=== PATIENT | female | born 1985 | race Two or more races ===

== ENCOUNTER 2018-07-01 18:10 | Emergency (ER) | payer MEDICAID, SELFPAY ==
[~2018-07-01] VITALS: Ht 167.6 cm; Wt 68.2 kg
[2018-07-01 18:52] LABS: BASOPHILS # (AUTO) 0.05 x10^3/uL (0-0.1); BASOPHILS % (AUTO) 1 % (0-1); EOSINOPHILS # (AUTO) 0.16 x10^3/uL (0-0.4); EOSINOPHILS % (AUTO) 2 % (1-7); LYMPHOCYTES # (AUTO) 2.88 x10^3/uL (1-3.4); LYMPHOCYTES % (AUTO) 35 % (22-44); MD NO; MEAN CORPUSCULAR HEMOGLOBIN 32.4 pg (27.0-34.8); MEAN CORPUSCULAR HGB CONC 33.8 g/dL (32.4-35.8); MEAN PLATELET VOLUME 10.1 fL (7.4-10.4); MONOCYTES # (AUTO) 0.56 x10^3/uL (0.2-0.8); MONOCYTES % (AUTO) 7 % (2-9); NEUTROPHILS # (AUTO) 4.59 x10^3/uL (1.8-6.8); NEUTROPHILS % (AUTO) 56 % (42-75); PLATELET COUNT 219 x10^3/uL (130-400); RED BLOOD COUNT 3.94 x10^6/uL (3.82-5.3); RED CELL DISTRIBUTION WIDTH 13.7 % (9.6-15.2)
[2018-07-01] MEDS ORDERED: PHENAZOPYRIDINE 200 MG TABLET ONE (18:53)
[2018-07-01 19:00] LABS: ALBUMIN 3.8 g/dL (3.4-5.0); ANION GAP 8 mmol/L (5-15); CALCIUM 8.7 mg/dL (8.5-10.1); CHLORIDE 108 mmol/L (98-107)
[2018-07-01] MEDS ORDERED: PHENAZOPYRIDINE 200 MG TABLET PO ONE (19:00)
[2018-07-01 19:06] LABS: ALANINE AMINOTRANSFERASE 19 U/L (12-78); ALKALINE PHOSPHATASE 78 U/L (45-117); BILIRUBIN,TOTAL 0.3 mg/dL (0.2-1.0); CREATININE 0.67 mg/dL (0.55-1.02); TOTAL PROTEIN 7.7 g/dL (6.4-8.2)
[2018-07-01 19:11] LABS: MICROSCOPIC INDICATED
[2018-07-01 19:12] LABS: CULTURE INDICATED? YES
[2018-07-01] MEDS ORDERED: CEFTRIAXONE 1,000 MG IM ONE (20:00)
[2018-07-01] MEDS ORDERED: LIDOCAINE-MPF 1%, 5ML ONE (20:03)
[2018-07-01] MEDS ORDERED: CEFTRIAXONE 1,000 MG ONE (20:03)
[2018-07-01] MEDS ORDERED: DIPHENHYDRAMINE 25 MG CAPSULE ONE (20:25)
[2018-07-01] MEDS ORDERED: DIPHENHYDRAMINE 25 MG CAPSULE PO ONE (20:30)
[2018-07-01 20:58] VITALS: BP 105/61
== END 2018-07-01 20:15 | disposition home or self-care (01) ==
LOC: ED 20:09
DX: N30.00 Acute cystitis without hematuria (principal)
CPT/HCPCS: 36415; 80053; 81001; 83690; 85025; 87077; 87086; 87186; 96372; 99284; J0696; Q0163

== ENCOUNTER 2019-03-04 22:21 | Emergency (ER) | payer MEDICAID ==
[~2019-03-04] VITALS: Ht 167.6 cm; Wt 72.3 kg
[2019-03-04 22:28] VITALS: BP 103/71
--- NOTE | 2019-03-04 22:50 | NUR ---
PT REPORTS THAT SHE IS DRIVING HER AND HER DAUGHTER HOME THIS EVENING. ERP AWARE. MEDICATION ORDERS CHANGED.
[2019-03-04] MEDS ORDERED: PROCHLORPERAZINE 5 MG/ML, 2ML IVPush ONE (23:00)
[2019-03-04] MEDS ORDERED: ONDANSETRON ODT 4 MG PO ONE (23:00)
[2019-03-04] MEDS ORDERED: DIPHENHYDRAMINE 50 MG/ML, 1ML IVPush ONE (23:00)
[2019-03-04] MEDS ORDERED: KETOROLAC 30 MG/1 ML IM ONE (23:00)
[2019-03-04] MEDS ORDERED: KETOROLAC 30 MG/1 ML IVPush ONE (23:00)
[2019-03-04 23:10] LABS: BASOPHILS # (AUTO) 0.07 x10^3/uL (0-0.1); BASOPHILS % (AUTO) 1 % (0-1); EOSINOPHILS # (AUTO) 0.16 x10^3/uL (0-0.4); EOSINOPHILS % (AUTO) 2 % (1-7); LYMPHOCYTES # (AUTO) 3.25 x10^3/uL (1-3.4); LYMPHOCYTES % (AUTO) 41 % (22-44); MD NO; MEAN CORPUSCULAR HEMOGLOBIN 32.2 pg (27.0-34.8); MEAN CORPUSCULAR HGB CONC 33.7 g/dL (32.4-35.8); MEAN CORPUSCULAR VOLUME 95.4 fL (80-100); MEAN PLATELET VOLUME 9.7 fL (7.4-10.4); MONOCYTES # (AUTO) 0.81 x10^3/uL (0.2-0.8); MONOCYTES % (AUTO) 10 % (2-9); NEUTROPHILS # (AUTO) 3.57 x10^3/uL (1.8-6.8); NEUTROPHILS % (AUTO) 46 % (42-75); PLATELET COUNT 212 x10^3/uL (130-400); RED BLOOD COUNT 3.81 x10^6/uL (3.82-5.3); RED CELL DISTRIBUTION WIDTH 13.8 % (9.6-15.2)
[2019-03-04] MEDS ORDERED: ONDANSETRON ODT 4 MG ONE (23:15)
[2019-03-04] MEDS ORDERED: KETOROLAC 30 MG/1 ML ONE (23:15)
[2019-03-04 23:16] LABS: ALANINE AMINOTRANSFERASE 16 U/L (12-78); ALBUMIN 3.7 g/dL (3.4-5.0); ANION GAP 5 mmol/L (5-15); CALCIUM 8.4 mg/dL (8.5-10.1); CHLORIDE 110 mmol/L (98-107)
[2019-03-04 23:19] LABS: ALKALINE PHOSPHATASE 79 U/L (45-117); CREATININE 0.75 mg/dL (0.55-1.02); TOTAL PROTEIN 7.2 g/dL (6.4-8.2)
[2019-03-04 23:21] LABS: BILIRUBIN,TOTAL < 0.1 mg/dL (0.2-1.0)
--- NOTE | 2019-03-04 23:25 | NUR ---
PT CO INTERMITTENT SNOWDEN X 'MONTHS'. NO HX OF SNOWDEN. +NAUSEA. DENIES DIZZINESS/WEAKNESS/SENSITIVITY TO LIGHT OR NOISE. FACE SYMMETRICAL, SPEECH CLEAR, +STRENGTH X4.
[2019-03-04 23:30] LABS: MICROSCOPIC NOT IND
[2019-03-04 23:34] LABS: CULTURE INDICATED? NO
--- NOTE | 2019-03-05 00:21 | NUR ---
PT REPORTS IMPROVEMENT IN PAIN WITH MEDICATIONS. DC EDUCATION PROVIDED, PT DEMONSTRATES UNDERSTANDING. PT AMBULATED STEADILY TO DC WITH RN AND DAUGHTER
== END 2019-03-05 00:23 | disposition home or self-care (01) ==
LOC: ED 22:43
DX: G44.219 Episodic tension-type headache, not intractable (principal); R11.2 Nausea with vomiting, unspecified; R19.7 Diarrhea, unspecified
CPT/HCPCS: 36415; 80053; 81003; 83690; 85025; 96372; 99283; J1885; Q0162

== ENCOUNTER 2019-04-18 02:39 | Emergency (ER) | payer MEDICAID ==
[~2019-04-18] VITALS: Ht 167.6 cm; Wt 69.7 kg
[2019-04-18 02:45] VITALS: BP 101/73
== END 2019-04-18 04:24 | disposition home or self-care (01) ==
LOC: ED 03:28
DX: J02.8 Acute pharyngitis due to other specified organisms (principal); Z90.710 Acquired absence of both cervix and uterus
CPT/HCPCS: 87081; 87880; 99283

== ENCOUNTER 2021-01-23 10:45 | Emergency (ER) | payer MEDICAID ==
[~2021-01-23] VITALS: Ht 167.6 cm; Wt 76.5 kg
[2021-01-23 10:50] VITALS: BP 114/67
--- NOTE | 2021-01-23 11:06 | NUR ---
PT HERE FOR C/O LEFT KNEE PAIN AFTER GLF THIS MORNING, STATES SHE TOOK MOTRIN WITHOUT RELIEF. UNABLE TO BEAR WEIGHT ON LEFT LEG.
[2021-01-23] MEDS ORDERED: KETOROLAC 30 MG/1 ML ONE (11:10)
[2021-01-23] MEDS ORDERED: KETOROLAC 30 MG/1 ML IM ONE (11:30)
== END 2021-01-23 12:19 | disposition home or self-care (01) ==
LOC: ED 11:51
DX: S83.422A Sprain of lateral collateral ligament of left knee, initial encounter (principal); W01.0XXA Fall on same level from slipping, tripping and stumbling without subsequent striking against object, initial encounter; Y93.01 Activity, walking, marching and hiking; Y92.488 Other paved roadways as the place of occurrence of the external cause; Y99.8 Other external cause status
CPT/HCPCS: 73564; 96372; 99283; J1885

== ENCOUNTER 2021-04-08 05:06 | Emergency (ER) | payer MEDICAID ==
[~2021-04-08] VITALS: Ht 167.6 cm; Wt 77.0 kg
--- NOTE | 2021-04-08 05:27 | NUR ---
PT ARRIVED TO ER FOR BACK PAIN AND PAINFUL URINATION, PT WAS ABLE TO PROVIDE A URINE SAMPLE. PT HOOKED UP TO BP AND PULSE OX MONITORING. PT RESTING COMFORTABLY ON GURNEY AND DENIES NEEDS AT THIS TIME.
[2021-04-08 05:37] LABS: HCG UR SG 1.023 (1.003-1.030); MICROSCOPIC AUTO
--- NOTE | 2021-04-08 05:46 | NUR ---
PT AMBULATORY WITH STEADY GAIT WITH THIS RN TO BATHROOM. NO ADDITIONAL NEEDS AT THIS TIME. CALL LIGHT AND PERSONAL BELONGINGS WITHIN REACH.
[2021-04-08] MEDS ORDERED: KETOROLAC 30 MG/1 ML ONE (06:14)
[2021-04-08] MEDS ORDERED: KETOROLAC 30 MG/1 ML IVPush ONE (06:30)
[2021-04-08] MEDS ORDERED: NITROFURANTOIN (MACROBID) 100 MG CAPSULE PO ONE (06:30)
--- NOTE | 2021-04-08 06:47 | NUR ---
US AT BEDSIDE
--- NOTE | 2021-04-08 06:56 | NUR ---
BEDSIDE REPORT TO YOMAIRA RIGGS
[2021-04-08 07:58] VITALS: BP 103/65
--- NOTE | 2021-04-08 07:59 | NUR ---
Patient given discharge instructions and they have confirmed that they understand the instructions. Patient ambulatory with steady gait.
--- NOTE | 2021-04-08 08:06 | NUR ---
PT LEFT PHONE HEALTH PHYSICIST IN ROOM AFTER D/C. HEALTH PHYSICIST PLACED IN RED BAG WITH PT LABEL AND BROUGHT TO SECURITY.
== END 2021-04-08 08:00 | disposition home or self-care (01) ==
LOC: ED 07:13
DX: N30.01 Acute cystitis with hematuria (principal); M54.5 Low back pain
CPT/HCPCS: 76770; 81001; 81025; 87077; 87086; 96374; 99284; J1885; 87186